=== PATIENT | male | born 1955 | race African-American/Black ===

== ENCOUNTER 2016-06-27 11:17 | Emergency (ER) | payer MEDICARE ==
[~2016-06-27 11:17] MED LIST: ASPI325T4 PO; CARV6.252 PO; CLOP75TA PO; DOCU-27 PO; FURO-68 PO; FURO80TA3 PO; Hydrocodone/Acetaminophen PO; LISI-338 PO; NITR0.4T SL; POTA20TA4 PO; SIMV40TA3 PO; SPIR25TA PO
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
[2016-06-27 13:09] LABS: BASO # 0.1 x10^3/uL (0.0-0.2); BASO % 1 % (0-3); EOS % 1 % (0-3); HEMATOCRIT 41.6 % (39.0-53.0); HEMOGLOBIN 13.1 g/dL (13.0-17.5); LYMPH # 0.9 x10^3/uL (1.0-4.8); LYMPH % 10 % (24-48); MEAN CORPUSCULAR HEMOGLOBIN 27 pg (25-35); MEAN CORPUSCULAR HGB CONC 32 g/dL (31-37); MEAN CORPUSCULAR VOLUME 87 fL (79-100); MONO % 12 % (0-9); NEUT % 77 % (31-73); PLATELET COUNT 187 x10^3/uL (140-400); WHITE BLOOD COUNT 9.9 x10^3/uL (4.0-11.0)
--- NOTE | 2016-06-27 13:12 | EKG ---
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
[2016-06-27 13:21] LABS: CREATININE 1.2 mg/dL (0.7-1.3); GFR 74.5; POTASSIUM 4.6 mmol/L (3.5-5.1)
[2016-06-27 13:57] LABS: INR 1.3 (0.8-1.1)
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
[2016-06-27] MEDS ORDERED: FUROSEMIDE 40 MG/4 ML VIAL IVP STA (14:48)
[2016-06-27 15:01] VITALS: BP 119/76
[2016-06-30] MEDS ORDERED: METO2.5T PO (11:37)
[2016-06-30] MEDS ORDERED: COLC0.6T34 PO (11:37)
== END 2016-06-27 15:14 | disposition home or self-care (01) ==
LOC: ER 11:17
DX: I50.9 Heart failure, unspecified (principal); Z91.013 Allergy to seafood
CPT/HCPCS: 36415; 71010; 80048; 83880; 84484; 85027; 85610; 85730; 93005; 96374; J1940; 99285-25

== ENCOUNTER 2016-06-28 11:22 | Inpatient (IN) | payer MEDICARE ==
[~2016-06-28] VITALS: Ht 182.9 cm; Wt 138.9 kg
--- NOTE | 2016-06-28 12:48 | PHYS DOC ---
Past Medical History Past Medical History: A-Fib, CAD, CHF, High Cholesterol, Hypertension Additional Past Medical Histor: cellulitis Past Surgical History: Other Additional Past Surgical Histo: CABG, AICD Alcohol Use: Occasionally Drug Use: None Adult General Chief Complaint Chief Complaint: LOWER EXTREMITY SWELLING HPI HPI Patient is a 60 year old white male who presents with bilateral lower extremity edema, shortness of breath. Patient reports for the past 2 weeks he has been feeling short of breath and having increasing swelling in bilateral lower extremities. He also feels like there is fluid in his chest. He has mild throbbing discomfort in his chest and cough as well. No clear inciting or mitigating factors. He was seen here at [facility] yesterday for same and was given dose of lasix before being sent home. Review of Systems Review of Systems Constitutional: Denies fever or chills Eyes: Denies change in visual acuity or eye pain HENT: Denies nasal congestion or sore throat Respiratory: Cough, shortness of breath, "fluid in chest" Cardiovascular: Denies chest pain GI: Denies abdominal pain, nausea, vomiting, bloody stools or diarrhea : Denies dysuria or hematuria Musculoskeletal: BLE swelling, pain Integument: Denies rash or skin lesions Neurologic: Denies headache, focal weakness or sensory changes Current Medications Current Medications Current Medications Medications (Trade) Dose Ordered Sig/Tanya Start Time Stop Time Status Last Admin Dose Admin Oxycodone/ Acetaminophen (Percocet 5/325) 2 tab 1X ONCE 06/28/16 13:00 06/28/16 13:01 DC 06/28/16 13:33 2 TAB Allergies Allergies Allergies Coded Allergies Type Severity Reaction Last Updated Verified shellfish derived Allergy Intermediate Hives 07/15/14 No Physical Exam Physical Exam Constitutional: Well developed, well nourished, no acute distress, non-toxic appearance HENT: Normocephalic, atraumatic, bilateral external ears normal Eyes: EOMI, conjunctiva normal, no discharge Neck: Normal range of motion, no stridor Cardiovascular: Heart rate normal, regular rhythm, murmur noted Lungs & Thorax: Bilateral breath sounds clear to auscultation Abdomen: Bowel sounds normal, soft, non-distended, no TTP Skin: Warm, dry, no erythema, no rash Extremities: BLE edema, TTP; 1+ b/l DP pulse Neurologic: Alert and oriented X 3, no gross deficits noted Current Patient Data Vital Signs Vital Signs Date Time Temp Pulse Resp B/P Pulse Ox O2 Delivery O2 Flow Rate FiO2 06/28/16 13:33 24 94 Room Air 06/28/16 13:00 78 134/82 06/28/16 12:00 98.2 98.2 Lab Values Laboratory Tests Test 06/28/16 13:03 White Blood Count 9.4x10^3/uL (4.0-11.0) Red Blood Count 4.61x10^6/uL (4.30-5.70) Hemoglobin 12.6g/dL (13.0-17.5) L Hematocrit 39.6% (39.0-53.0) Mean Corpuscular Volume 86fL (79-100) Mean Corpuscular Hemoglobin 27pg (25-35) Mean Corpuscular Hemoglobin Concent 32g/dL (31-37) Red Cell Distribution Width 14.3% (11.5-14.5) Platelet Count 197x10^3/uL (140-400) Neutrophils (%) (Auto) 78% (31-73) H Lymphocytes (%) (Auto) 9% (24-48) L Monocytes (%) (Auto) 12% (0-9) H Eosinophils (%) (Auto) 1% (0-3) Basophils (%) (Auto) 1% (0-3) Neutrophils # (Auto) 7.3x10^3uL (1.8-7.7) Lymphocytes # (Auto) 0.8x10^3/uL (1.0-4.8) L Monocytes # (Auto) 1.1x10^3/uL (0.0-1.1) Eosinophils # (Auto) 0.1x10^3/uL (0.0-0.7) Basophils # (Auto) 0.1x10^3/uL (0.0-0.2) Sodium Level 137mmol/L (136-145) Potassium Level 4.4mmol/L (3.5-5.1) Chloride Level 98mmol/L (98-107) Carbon Dioxide Level 32mmol/L (21-32) Anion Gap 7 (6-14) Blood Urea Nitrogen 13mg/dL (8-26) Creatinine 1.2mg/dL (0.7-1.3) Estimated GFR (Cockcroft-Gault) 74.5 Glucose Level 132mg/dL (70-99) H Calcium Level 9.1mg/dL (8.5-10.1) Troponin I Quantitative < 0.017ng/mL (0.000-0.055) XN-Csu-U-Type Natriuretic Peptide 2077pg/mL (0-124) H Laboratory Tests 06/28/16 13:03 Laboratory Tests 06/28/16 13:03 EKG EKG EKG (my read): sinus rhythm, rate 69, LAD, ID 220 ms, IVCD, TWI lead I/aVL Radiology/Procedures Radiology/Procedures CXR: IMPRESSION: 1. Stable cardiomegaly. 2. Stable postoperative changes. Course & Med Decision Making Course & Med Decision Making Pertinent Labs and Imaging studies reviewed. (See chart for details) Patient is 60-year-old male who presents with bilateral lower extremity edema and shortness of breath. Suspect CHF exacerbation. EKG, chest x-ray, labs ordered to evaluate. Oral pain medication ordered for relief of pain. Labs notable for elevated BNP; this is actually slightly higher than yesterday, when he is seen in the ED and was even given dose of IV Lasix. Discussed results with patient. Given increasing BMP even after IV Lasix this, we will be best for patient to stay in the hospital for diuresis and evaluation by cardiology. Dose of Lasix ordered. Discussed Dr. Keller, will admit under his care for further evaluation and treatment. Dragon Disclaimer Dragon Disclaimer This electronic medical record was generated, in whole or in part, using a voice recognition dictation system. Departure Departure Impression: Primary Impression: CHF exacerbation Disposition: ADMITTED INPATIENT Admitting Physician: Danny Keller Condition: STABLE Referrals: DANNY KELLER MD (PCP) GRISELDA ERWIN MD Jun 28, 2016 12:48
[2016-06-28] MEDS ORDERED: OXYCODONE/APAP 5/325 TABLET. PO ONE (13:00)
[2016-06-28 13:14] LABS: BASO # 0.1 x10^3/uL (0.0-0.2); BASO % 1 % (0-3); EOS % 1 % (0-3); HEMATOCRIT 39.6 % (39.0-53.0); HEMOGLOBIN 12.6 g/dL (13.0-17.5); LYMPH # 0.8 x10^3/uL (1.0-4.8); LYMPH % 9 % (24-48); MEAN CORPUSCULAR HEMOGLOBIN 27 pg (25-35); MEAN CORPUSCULAR HGB CONC 32 g/dL (31-37); MEAN CORPUSCULAR VOLUME 86 fL (79-100); MONO % 12 % (0-9); NEUT % 78 % (31-73); PLATELET COUNT 197 x10^3/uL (140-400); RED BLOOD COUNT 4.61 x10^6/uL (4.30-5.70); RED CELL DISTRIBUTION WIDTH 14.3 % (11.5-14.5); WHITE BLOOD COUNT 9.4 x10^3/uL (4.0-11.0)
[2016-06-28 13:31] LABS: CALCIUM 9.1 mg/dL (8.5-10.1); CREATININE 1.2 mg/dL (0.7-1.3); GFR 74.5; POTASSIUM 4.4 mmol/L (3.5-5.1)
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
[2016-06-28] MEDS ORDERED: ACETAMINOPHEN 325 MG TABLET. PO PRN ×2 (14:15→19:45)
[2016-06-28] MEDS ORDERED: ONDANSETRON PF 4 MG/2 ML VIAL. IV PRN ×2 (14:15→19:45)
[2016-06-28] MEDS ORDERED: FUROSEMIDE 40 MG/4 ML VIAL IVP ONE (14:15)
--- NOTE | 2016-06-28 14:20 | EKG ---
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
[2016-06-28] MEDS: MORPHINE SULFATE 4 MG/ML DISP.SYRIN. IV PRN (16:26)
[2016-06-28 19:00] VITALS: BP 118/77
[2016-06-28] MEDS ORDERED: ALBUTEROL SULFATE 2.5 MG/3 ML NEBU. NEB PRN (19:45)
[2016-06-28] MEDS ORDERED: HYDROCODONE/APAP 5/325MG TABLET. PO PRN (19:45)
[2016-06-28] MEDS ORDERED: hydrALAZINE 20 MG/ML VIAL. IVP PRN (19:45)
[2016-06-28] MEDS ORDERED: FUROSEMIDE 20 MG/2 ML VIAL IVP ONE (20:00)
[2016-06-28] MEDS ORDERED: SIMVASTATIN 40 MG TABLET. PO ONE (22:30)
[2016-06-28] MEDS ORDERED: POTASSIUM CHLORIDE 20 MEQ TABLET.ER. PO ONE (22:30)
[2016-06-28 23:00] VITALS: BP 123/87
[2016-06-28] MEDS: CARVEDILOL 6.25 MG TABLET PO SCH (23:02)
[2016-06-29 02:06] LABS: BASO % 0 % (0-3); EOS % 1 % (0-3); HEMATOCRIT 39.9 % (39.0-53.0); HEMOGLOBIN 12.5 g/dL (13.0-17.5); LYMPH # 0.9 x10^3/uL (1.0-4.8); LYMPH % 10 % (24-48); MEAN CORPUSCULAR HEMOGLOBIN 27 pg (25-35); MEAN CORPUSCULAR HGB CONC 31 g/dL (31-37); MEAN CORPUSCULAR VOLUME 86 fL (79-100); MONO % 12 % (0-9); NEUT % 77 % (31-73); PLATELET COUNT 194 x10^3/uL (140-400); RED BLOOD COUNT 4.62 x10^6/uL (4.30-5.70); RED CELL DISTRIBUTION WIDTH 14.8 % (11.5-14.5); WHITE BLOOD COUNT 9.1 x10^3/uL (4.0-11.0)
[2016-06-29 02:17] LABS: CALCIUM 8.9 mg/dL (8.5-10.1); CREATININE 1.2 mg/dL (0.7-1.3); GFR 74.5; POTASSIUM 3.9 mmol/L (3.5-5.1)
[2016-06-29 03:00] VITALS: BP 132/85
[2016-06-29] MEDS: MORPHINE SULFATE 4 MG/ML DISP.SYRIN. IV PRN ×3 (03:28→08:57)
--- NOTE | 2016-06-29 05:38 | ACF ---
Admission Forms Criteria HEART FAILURE: COMMON COMPLICATIONS Clinical Indications for Inpatient Care (Place 'X' for any and all applicable criteria): Ongoing inpatient care may be indicated for heart failure with ANY ONE of the following (1)(2)(3)(4)(5): [ ]I. Ongoing need for care for primary condition requiring frequent therapy adjustments because of changes in cardiac function (eg, drug dosage changes for drugs that are renally metabolized) [ ]II. New-onset heart failure [ ]III. Heart failure with decreased urine output not responsive to attempts to optimize volume status [ ]IV. Acute cardiac ischemia causing or associated with failure [X]V. Complications of heart failure, including ANY ONE of the following: [ ]a) Pericardial effusion [ ]b) Symptomatic pleural effusion [X]c) O2 saturation <90% or PO2 < 60 mm Hg (8.0 kPa) on room air or require baseline supplemental O2 [ ]d) Tachypnea [X]e) Dyspnea [ ]f) Syncope [ ]g) Change in mental status [ ]h) Acute renal insufficiency that is severe (reduction of more than 50% in estimated glomerular filtration rate from baseline) or progressive reduction of more than 25% in estimated glomerular filtration rate from baseline, with creatinine continuing to rise) [ ]i) Hemodynamic instability [ ]j) Anasarca [ ]k) Clinically significant metabolic abnormalities due to heart failure (eg, new-onset metabolic acidosis) Extended stay beyond goal length of stay for primary condition may be needed until ALL of the following are present(1)(3): [ ]a) Stable and effective diuretic regimen established (or patient on stable dialysis regimen if in chronic renal failure) [ ]b) Breathing comfortably at rest [ ]c) Saturation of arterial oxygen greater than 90% or at acceptable baseline [ ]d) Pulmonary edema absent or improved [ ]e) Hemodynamic stability [ ]f) Volume status acceptable on oral medication [ ]g) Peripheral or sacral edema absent or improved [ ]h) Renal function stable and manageable at a lower level of care [ ]i) Complications (eg, pleural effusion) resolved or manageable at a lower level of care [ ]j) Patient or caregiver has received written discharge instructions or educational material addressing activity level, diet, discharge medications, follow-up appointment, weight monitoring, and what to do if symptoms worsen The original [email or web address] content created by [employer] has been revised. The portions of the content which have been revised are identified through the use of italic text or in bold, and [facility] has neither reviewed nor approved the modified material.All other unmodified content is copyright [facility]. Please see references footnoted in the original [facility] edition 2016 Admission Criteria Met?: Yes SANDIE ZAVALETA Jun 29, 2016 05:38
[2016-06-29 07:20] VITALS: BP 145/73
[2016-06-29] MEDS: ALBUTEROL SULFATE 2.5 MG/3 ML NEBU. NEB SCH ×4 (08:16→19:50)
[2016-06-29] MEDS: CLOPIDOGREL BISULFATE 75 MG TABLET PO SCH (08:18)
[2016-06-29] MEDS: SPIRONOLACTONE 25 MG TABLET PO SCH (08:18)
[2016-06-29] MEDS: POTASSIUM CHLORIDE 20 MEQ TABLET.ER. PO SCH ×2 (08:18→17:34)
[2016-06-29] MEDS: FUROSEMIDE 80 MG TABLET PO SCH ×2 (08:18→15:33)
[2016-06-29] MEDS: LISINOPRIL 5 MG TABLET. PO SCH (08:21)
[2016-06-29] MEDS: ASPIRIN 325 MG TABLET PO SCH (08:21)
[2016-06-29] MEDS: CARVEDILOL 6.25 MG TABLET PO SCH ×2 (08:21→17:35)
[2016-06-29] MEDS ORDERED: FUROSEMIDE 40 MG/4 ML VIAL IVP ONE ×2 (10:30→12:30)
--- NOTE | 2016-06-29 10:34 | PDOC2 ---
CARDIAC CONSULT DATE OF CONSULT Date of Consult DATE: 06/29/16 TIME: 10:21 REASON FOR CONSULT Reason for Consult: CHF Exacerbation REFERRING PHYSICIAN Referring Physician: Dr. Dong SOURCE Source: Chart review, Patient HISTORY OF PRESENT ILLNESS HISTORY OF PRESENT ILLNESS This is a 60 yo male who presented with complaints of shortness of breath and lower extremity edema. Associated with LE tightness and tenderness. Patient reports both have been ongoing for the last 2 weeks; have progressively worsened. Denies any CP, palpitations, diaphoresis, dizziness, orthopnea, DRAPER, or recent illness/fevers. Reports consistent diet and compliance with medications. Patient was seen here at [facility] yesterday for same symptoms and was given dose of Lasix before being sent home. PAST MEDICAL HISTORY Cardiovascular: CAD, CHF, HTN, VA, Hyperlipidemia, Other (ischemic cardiomyopathy s/p ICD implantation) Pulmonary: Other (ELIZABETH ) GI: No pertinent hx Heme/Onc: No pertinent hx, Sickle cell disease Hepatobiliary: No pertinent hx Psych: No pertinent hx Musculoskeletal: low back pain, Osteoarthritis, Other (lumbar stenosis ) Rheumatologic: No pertinent hx, Gout Infectious disease: No pertinent hx ENT: No pertinent hx Renal/: No pertinent hx Endocrine: Diabetes Dermatology: No pertinent hx PAST SURGICAL HISTORY Past Surgical History: Pacemaker (AICD), CABG, Other (left arm and right shoulder sx wtih hardware) FAMILY HISTORY Family History: Heart Disease, Hypertension SOCIAL HISTORY Smoke: No ALCOHOL: occassional Drugs: None Lives: with Family CURRENT MEDICATIONS CURRENT MEDICATIONS Current Medications Medications (Trade) Dose Ordered Sig/Tanya Route PRN Reason Start Time Stop Time Status Last Admin Dose Admin Oxycodone/ Acetaminophen (Percocet 5/325) 2 tab 1X ONCE PO 06/28/16 13:00 06/28/16 13:01 DC 06/28/16 13:33 Furosemide (Lasix) 40 mg 1X ONCE IVP 06/28/16 14:15 06/28/16 14:16 DC 06/28/16 15:29 Morphine Sulfate 4 mg PRN Q2HR PRN IV PAIN 06/28/16 14:15 06/29/16 14:14 06/29/16 08:57 Carvedilol (Coreg) 6.25 mg BIDWMEALS PO 06/28/16 22:00 06/29/16 08:21 Potassium Chloride (Klor-Con) 20 meq BIDWMEALS PO 06/29/16 08:00 06/29/16 08:18 Spironolactone (Aldactone) 25 mg DAILY PO 06/29/16 09:00 06/29/16 08:18 Albuterol Sulfate (Ventolin Neb Soln) 2.5 mg RTQID NEB 06/29/16 21:30 06/29/16 21:30 DC 06/28/16 21:38 Potassium Chloride (Klor-Con) 20 meq 1X ONCE PO 06/28/16 22:30 06/28/16 22:31 DC 06/28/16 23:01 Simvastatin (Zocor) 40 mg 1X ONCE PO 06/28/16 22:30 06/28/16 22:31 DC 06/28/16 23:02 Aspirin (Katie Aspirin) 325 mg DAILY PO 06/29/16 09:00 06/29/16 08:21 Clopidogrel Bisulfate (Plavix) 75 mg DAILY PO 06/29/16 09:00 06/29/16 08:18 Furosemide (Lasix) 80 mg BID94 PO 06/29/16 09:00 06/29/16 08:18 Lisinopril (Prinivil) 5 mg DAILY PO 06/29/16 09:00 06/29/16 08:21 Albuterol Sulfate (Ventolin Neb Soln) 2.5 mg RTQID [facility] 06/29/16 08:00 06/29/16 08:16 ALLERGIES ALLERGIES: Coded Allergies: shellfish derived (Unverified Allergy, Intermediate, Hives, 07/15/14) ROS Review of System 14 point ROS conducted with pertinent positives noted above in HPI. PHYSICAL EXAM General: Alert, Oriented X3, Cooperative, No acute distress HEENT: Atraumatic, Mucous membr. moist/pink Lungs: Normal air movement, Other (crackles posterior bases ) Heart: Regular rate, Normal S1, Normal S2, Other (3/6 systolic murmur ) Abdomen: Soft, Other (obese ) Extremities: Other (1-2+ bilateral LE edema. Diminished DP pulses ) Skin: No significant lesion, Other (bi LE skin taught, tender to touch) Neuro: Normal speech, Sensation intact Psych/Mental Status: Mental status NL, Mood NL MUSCULOSKELETAL: Full range of motion without pain VITALS VITALS Vital Signs Date Time Temp Pulse Resp B/P Pulse Ox O2 Delivery O2 Flow Rate FiO2 06/29/16 08:57 Room Air 06/29/16 08:21 81 145/73 06/29/16 08:17 97 06/29/16 07:20 97.5 20 97.5 LABS Lab: Laboratory Tests Test 06/28/16 13:03 06/28/16 19:55 06/29/16 02:00 White Blood Count 9.4x10^3/uL (4.0-11.0) 9.1x10^3/uL (4.0-11.0) Red Blood Count 4.61x10^6/uL (4.30-5.70) 4.62x10^6/uL (4.30-5.70) Hemoglobin 12.6g/dL (13.0-17.5) 12.5g/dL (13.0-17.5) Hematocrit 39.6% (39.0-53.0) 39.9% (39.0-53.0) Mean Corpuscular Volume 86fL (79-100) 86fL (79-100) Mean Corpuscular Hemoglobin 27pg (25-35) 27pg (25-35) Mean Corpuscular Hemoglobin Concent 32g/dL (31-37) 31g/dL (31-37) Red Cell Distribution Width 14.3% (11.5-14.5) 14.8% (11.5-14.5) Platelet Count 197x10^3/uL (140-400) 194x10^3/uL (140-400) Neutrophils (%) (Auto) 78% (31-73) 77% (31-73) Lymphocytes (%) (Auto) 9% (24-48) 10% (24-48) Monocytes (%) (Auto) 12% (0-9) 12% (0-9) Eosinophils (%) (Auto) 1% (0-3) 1% (0-3) Basophils (%) (Auto) 1% (0-3) 0% (0-3) Neutrophils # (Auto) 7.3x10^3uL (1.8-7.7) 7.0x10^3uL (1.8-7.7) Lymphocytes # (Auto) 0.8x10^3/uL (1.0-4.8) 0.9x10^3/uL (1.0-4.8) Monocytes # (Auto) 1.1x10^3/uL (0.0-1.1) 1.1x10^3/uL (0.0-1.1) Eosinophils # (Auto) 0.1x10^3/uL (0.0-0.7) 0.1x10^3/uL (0.0-0.7) Basophils # (Auto) 0.1x10^3/uL (0.0-0.2) 0.0x10^3/uL (0.0-0.2) Sodium Level 137mmol/L (136-145) 139mmol/L (136-145) Potassium Level 4.4mmol/L (3.5-5.1) 3.9mmol/L (3.5-5.1) Chloride Level 98mmol/L (98-107) 99mmol/L (98-107) Carbon Dioxide Level 32mmol/L (21-32) 29mmol/L (21-32) Anion Gap 7 (6-14) 11 (6-14) Blood Urea Nitrogen 13mg/dL (8-26) 19mg/dL (8-26) Creatinine 1.2mg/dL (0.7-1.3) 1.2mg/dL (0.7-1.3) Estimated GFR (Cockcroft-Gault) 74.5 74.5 Glucose Level 132mg/dL (70-99) 121mg/dL (70-99) Calcium Level 9.1mg/dL (8.5-10.1) 8.9mg/dL (8.5-10.1) Troponin I Quantitative < 0.017ng/mL (0.000-0.055) < 0.017ng/mL (0.000-0.055) < 0.017ng/mL (0.000-0.055) WB-Pla-D-Type Natriuretic Peptide 2077pg/mL (0-124) ECHOCARDIOGRAM ECHOCARDIOGRAM <Conclusion> Left ventricle systolic function is severely impaired. The Ejection Fraction is <20%. There is global hypokinesis of the left ventricle. There is akinesis in the mid to distal septal wall. There is akinesis in the basal to mid anterior wall. Transmitral Doppler flow pattern is restrictive diastolic dysfunction. The right ventricle is mildly dilated. RV Systolic function is mildly reduced. Doppler and Color Flow revealed moderate tricuspid regurgitation. There is severe pulmonary hypertension. The PA pressure was estimated at 86 mmHg. Doppler and Color Flow revealed moderate to severe pulmonic valvular regurgitation. The IVC is dilated and collapses <50% with inspiration. DATE: 05/18/16 1226 STRESS TEST STRESS TEST Conclusion 1. No EKG evidence of stress-induced ischemia. 2. Infarct in the mid anterior, septal and apical rodriguez with kathy-infarction ischemia present. 3. No isolated areas of reversible ischemia. 4. Decreased ejection fraction at 42% with septal, distal anterior and apical hypokinesis. 5. Moderate risk Lexiscan nuclear stress test. DATE: 05/18/16 1545 HEART CATH HEART CATH Coronaries. Left main. The left main had a 10% lesion. Left anterior descending. The proximal LAD stent was patent. Left circumflex. There was a 50% proximal lesion, a greater than 60% obtuse marginal 1 lesion and the distal left circumflex was a small diffusely diseased vessel. Right coronary artery. There was a proximal subtotal lesion and a mid occlusion. Grafts. Saphenous vein graft to the left circumflex system was patent. Saphenous vein graft to the PDA and right coronary artery was patent. <Conclusion> Multivessel CAD. Patent LAD stent. Two patent saphenous vein grafts. Elevated LVEDP at 32 mmHg. DATE: 05/25/16 1413 ASSESSMENT/PLAN ASSESSMENT/PLAN 1. Acute on chronic systolic HF improved with IV Lasix recent echo revealed impaired LV function with an EF <20% with polyvalvular disease and severe pul HTN- PAP 86 Continue with diuresis with monitoring of renal function. Zaroxolyn added. 2000cc F.R. continue optimization therapy. 2. Ischemic cardiomoypathy; LVEF 20% s/p ICD implantation recent device interrogation with normal function. continue medical management 3. CAD s/p CABG and PCI/stent to LAD stable. CP free. recent cardiac cath revealed patent SVG to LCx graft and SVG to PDA and RCA, along with patent LAD stent. continue secondary prevention 4. Hypertension controlled. continue with current therapy 5. Hyperlipidemia check lipids statin therapy 6. ELIZABETH? outpatient evaluation planned for next week Problems: ADRIANA ALFARO APRN Jun 29, 2016 10:34
[2016-06-29] MEDS ORDERED: HYDROCODONE/APAP 7.5/325MG TABLET. PO PRN (10:45)
[2016-06-29 11:39] VITALS: BP 110/74
--- NOTE | 2016-06-29 13:20 | HP ---
ADMIT DATE: 06/28/2016 CHIEF COMPLAINT: Shortness of breath and leg pain. HISTORY OF PRESENT ILLNESS AND HOSPITAL COURSE: This patient is a 60-year-old male with known nonischemic cardiomyopathy and severe pulmonary hypertension, who began having increasing leg swelling and subsequently leg pain mostly to his right lower extremity as well as shortness of breath. He has shortness of breath which comes in as episodes of attack. His pain in his leg was constant. He came to the Emergency Room on 06/27/2016 and was treated with IV Lasix and discharged home, but returned with increasing swelling and poor efficacy of IV Lasix. At this point, he was admitted because he was unable to care for himself due to leg pain, poor mobility and increasing shortness of breath. PAST MEDICAL HISTORY: Significant for: 1. Coronary artery disease. 2. Hypertension. 3. High cholesterol. 4. Prediabetes. 5. Ischemic cardiomyopathy with ICD in place. Ejection fraction less than 20% on last echo. 6. Pulmonary hypertension. 7. Gouty arthritis. FAMILY HISTORY: Noncontributory. SOCIAL HISTORY: The patient does not smoke or use alcohol. REVIEW OF SYSTEMS: The patient was doing well until approximately 48 hours prior to admit when he began having increasing leg swelling and shortness of breath. He denies any nausea, vomiting, cough, congestion, or fever. He has no diarrhea. PHYSICAL EXAMINATION: GENERAL: This is a well-nourished, moderately obese male, in mild distress. He is alert and oriented x 3. HEENT: Benign. NECK: Supple, no JVD or bruits. CARDIAC: Regular rate and rhythm with grade 2/3 systolic ejection murmur. LUNGS: Clear with decreased of sounds at bases. ABDOMEN: Soft and nontender. EXTREMITIES: Showed thready pulses bilaterally and 1+ pitting edema. NEUROLOGIC: Showed no unilateral findings. ASSESSMENT: 1. Evzub-er-luxscyc combined systolic and diastolic congestive heart failure. 2. Severe pulmonary hypertension. PLAN: To proceed with diuresis and consult Cardiology for further evaluation and care. We will also do circulation studies for extremities due to poor pulses and leg pain as well as evaluation for gouty arthritis. ADA SAENZ MD DR: SHILPA/rakesh JOB#: [id number] / [id number]
--- NOTE | 2016-06-29 13:30 | RAD ---
EXAM: Bilateral lower extremity venous Doppler sonogram. HISTORY: Swelling. TECHNIQUE: Grayscale and color Doppler sonographic imaging of the lower 70 veins with spectral waveform analysis was performed. COMPARISON: None. FINDINGS: There is normal color flow, normal compressibility and there are normal spectral waveforms within the lower extremity veins. IMPRESSION: No Doppler evidence of lower extremity venous thrombosis.
[2016-06-29] MEDS: HYDROCODONE/APAP 7.5/325MG TABLET. PO PRN (15:33)
[2016-06-29 15:36] VITALS: BP 130/62
[2016-06-29 19:00] VITALS: BP 101/73
[2016-06-29] MEDS ORDERED: SIMVASTATIN 40 MG TABLET. PO SCH (21:00)
[2016-06-29] MEDS ORDERED: ALBUTEROL SULFATE 2.5 MG/3 ML NEBU. NEB SCH (21:30)
[2016-06-29 23:00] VITALS: BP 132/76
[2016-06-30 03:00] VITALS: BP 134/78
[2016-06-30 07:00] VITALS: BP 131/72
[2016-06-30] MEDS: ALBUTEROL SULFATE 2.5 MG/3 ML NEBU. NEB SCH ×3 (07:10→14:57)
[2016-06-30] MEDS: CARVEDILOL 6.25 MG TABLET PO SCH ×2 (08:12→15:46)
[2016-06-30] MEDS: HYDROCODONE/APAP 7.5/325MG TABLET. PO PRN ×2 (08:12→15:47)
[2016-06-30] MEDS: POTASSIUM CHLORIDE 20 MEQ TABLET.ER. PO SCH ×2 (08:13→15:46)
[2016-06-30] MEDS: ASPIRIN 325 MG TABLET PO SCH (08:46)
[2016-06-30] MEDS: FUROSEMIDE 80 MG TABLET PO SCH ×2 (08:46→15:45)
[2016-06-30] MEDS: CLOPIDOGREL BISULFATE 75 MG TABLET PO SCH (08:46)
[2016-06-30] MEDS: LISINOPRIL 5 MG TABLET. PO SCH (08:46)
[2016-06-30] MEDS: SPIRONOLACTONE 25 MG TABLET PO SCH (08:46)
[2016-06-30] MEDS ORDERED: METOLAZONE 2.5 MG TABLET PO SCH (09:00)
[2016-06-30 11:17] VITALS: BP 104/67
[2016-06-30] MEDS ORDERED: COLC0.6T34 PO (11:37)
[2016-06-30] MEDS ORDERED: METO2.5T PO (11:37)
[2016-06-30] MEDS ORDERED: COLCHICINE 0.6 MG TABLET PO SCH (11:47)
[2016-06-30 11:51] LABS: HEMATOCRIT 37.5 % (39.0-53.0); HEMOGLOBIN 11.9 g/dL (13.0-17.5); RED BLOOD COUNT 4.36 x10^6/uL (4.30-5.70); RED CELL DISTRIBUTION WIDTH 14.8 % (11.5-14.5); WHITE BLOOD COUNT 9.2 x10^3/uL (4.0-11.0)
[2016-06-30 12:06] LABS: CALCIUM 8.7 mg/dL (8.5-10.1); CREATININE 1.2 mg/dL (0.7-1.3); GFR 74.5; POTASSIUM 3.9 mmol/L (3.5-5.1)
--- NOTE | 2016-06-30 13:12 | PDOC ---
CARDIO Progress Notes Date and Time Date of Service 06/30/16 Time of Evaluation 1150 Subjective Subjective: No Chest Pain, No shortness of breath, No Palpitations, No Dizziness, Other (SOA improved. ) Vitals Vitals Vital Signs Date Time Temp Pulse Resp B/P Pulse Ox O2 Delivery O2 Flow Rate FiO2 06/30/16 11:17 97.9 63 18 104/67 90 Room Air 97.9 Weight Weight [ ] Input and Output Intake and Output Intake and Output 06/30/16 07:00 Intake Total 480 ml Output Total 2025 ml Balance -1545 ml Intake Oral 480 ml Output Urine Total 2025 ml Laboratory Labs Laboratory Tests Test 06/30/16 11:20 White Blood Count 9.2x10^3/uL (4.0-11.0) Red Blood Count 4.36x10^6/uL (4.30-5.70) Hemoglobin 11.9g/dL (13.0-17.5) Hematocrit 37.5% (39.0-53.0) Mean Corpuscular Volume 86fL (79-100) Mean Corpuscular Hemoglobin 27pg (25-35) Mean Corpuscular Hemoglobin Concent 32g/dL (31-37) Red Cell Distribution Width 14.8% (11.5-14.5) Platelet Count 214x10^3/uL (140-400) Sodium Level 135mmol/L (136-145) Potassium Level 3.9mmol/L (3.5-5.1) Chloride Level 97mmol/L (98-107) Carbon Dioxide Level 32mmol/L (21-32) Anion Gap 6 (6-14) Blood Urea Nitrogen 19mg/dL (8-26) Creatinine 1.2mg/dL (0.7-1.3) Estimated GFR (Cockcroft-Gault) 74.5 Glucose Level 121mg/dL (70-99) Calcium Level 8.7mg/dL (8.5-10.1) Physical Exam HEENT: Neck Supple W Full Motion Chest: Symmetric LUNGS: Other (diminished bases ) Heart: S1S2, RRR, murmurs ( systolic murmur /) Abdomen: Normal Aortic Impulse (3/6 systolic murmur ), Soft N/T Extremities: Other (1+ bilateral LE edema ) Neurology: alert, oriented, follow commands Assessment Assessment 1. Acute on chronic systolic HF improved with IV Lasix recent echo revealed impaired LV function with an EF <20% with polyvalvular disease and severe pul HTN- PAP 86 2000cc F.R. Appears fairly well compensated continue optimization therapy. May discharge from a cardiovascular standpoint and f/u in our office with Dr. Myles in 1 month. 2. Ischemic cardiomyopathy; LVEF 20% s/p ICD implantation recent device interrogation with normal function. continue medical management 3. CAD s/p CABG and PCI/stent to LAD stable. CP free. recent cardiac cath revealed patent SVG to LCx graft and SVG to PDA and RCA, along with patent LAD stent. No further CAD continue secondary prevention 4. Hypertension controlled. continue with current therapy 5. Hyperlipidemia statin therapy 6. ELIZABETH? outpatient evaluation planned for next week ADRIANA ALFARO APRN Jun 30, 2016 13:12
--- NOTE | 2016-06-30 13:29 | RAD ---
EXAM: Bilateral lower extremity arterial Doppler sonogram. HISTORY: Decreased pulses. TECHNIQUE: Grayscale and color Doppler sonographic imaging of the lower extremity arteries with spectral waveform analysis was performed. COMPARISON: None. FINDINGS: There are triphasic waveforms extending from the right common femoral artery to the right peroneal artery and from the left common femoral artery to the dorsalis pedis artery. There are biphasic waveforms within the right anterior tibial and dorsalis pedis arteries. The peak systolic velocities within the right lower extremity measure 80 cm/s within the common femoral artery, 53 cm/s within the deep femoral artery, 91 cm/s within the proximal superficial femoral artery, 81 cm/s within the mid superficial femoral artery, 117 cm/s within the distal superficial femoral artery, 86 cm/s within the popliteal artery, 94 cm/s within the proximal posterior tibial artery, 84 cm/s within the peroneal artery, 58 cm/s within the anterior tibial artery and 4 cm/s within the dorsalis pedis artery. The peak systolic velocities within the left lower extremity measure 109 cm/s within the common femoral artery, 46 cm/s within the deep femoral artery, 95 cm/s within the proximal superficial femoral artery, 75 cm/s within the mid superficial femoral artery, was 101 cm/s within the distal superficial femoral artery, 69 cm/s within the popliteal artery, 64 cm/s within the proximal posterior tibial artery, 94 cm/s within the peroneal artery, 40 cm/s within the anterior tibial artery and 63 cm/s within the dorsalis pedis artery. IMPRESSION: 1. Decreased peak systolic velocity within the right dorsalis pedis artery suggesting low flow due to proximal hemodynamically significant stenosis. There are biphasic waveforms within the right anterior tibial and dorsalis pedis arteries and triphasic waveforms throughout the remainder of the lower extremity arteries. 2. Peak systolic velocities within the bilateral lower extremity arteries as described in detail above. There is no evidence of occlusion.
[2016-06-30 15:38] VITALS: BP 104/62
[2016-06-30 15:46] VITALS: BP 104/62
--- NOTE | 2016-06-30 20:39 | DS ---
DATE OF DISCHARGE: 06/30/2016 ADMITTING DIAGNOSIS: Acute on chronic combined systolic and diastolic congestive heart failure. HOSPITAL COURSE: The patient is a 60-year-old -[place] male with known ischemic cardiomyopathy, admitted with increasing shortness of breath after at least two ER visits for shortness of breath. He also has significant leg pain with swelling which during hospitalization localized towards his toes. Uric acid during hospital stay confirmed a high uric acid and likely gouty arthritis diagnosis. Patient was diuresed, diuresing almost 2 liters in the hospital and came back down to baseline. The patient did have poor pulses and arterial Doppler was ordered and this was pending at the time of dictation. The patient also had venous Dopplers for DVT due to shortness of breath to rule out or decrease considerations for PE. DISCHARGE DIAGNOSES: 1. Acute on chronic combined systolic and diastolic congestive heart failure. 2. Severe pulmonary hypertension. 3. Coronary artery disease. 4. Hypertension. 5. High cholesterol. 6. Prediabetes. 7. Gouty arthritis. 8. Morbid obesity. DISCHARGE MEDICATIONS: Discharged to home on the following medications: Colchicine 0.6 b.i.d., metolazone 2.5, Mondays, Wednesdays and Fridays, aspirin 325 mg daily, carvedilol 6.25 mg b.i.d., Plavix 75 mg daily, Lasix 80 mg b.i.d., lisinopril 5 mg daily, potassium 20 mEq b.i.d., simvastatin 40 mg daily, Aldactone 25 mg daily. We will consider allopurinol or Uloric as outpatient once gouty arthritis attack has resolved. We will also consider obstructive sleep apnea test due to morbid obesity. ADA SAENZ MD DR: SHILPA/rakesh JOB#: [id number] / [id number]
== END 2016-06-30 17:07 | disposition home or self-care (01) | DRG 291 ==
LOC: ER 11:22 → 5 NORTH 14:04
PROVIDERS: ADMIT Family Medicine; ATTEND Family Medicine
DX: I13.0 Hypertensive heart and chronic kidney disease with heart failure and stage 1 through stage 4 chronic kidney disease, or unspecified chronic kidney disease (principal); I50.43 Acute on chronic combined systolic (congestive) and diastolic (congestive) heart failure; Z68.41 Body mass index [BMI] 40.0-44.9, adult; I25.5 Ischemic cardiomyopathy; I27.2 Other secondary pulmonary hypertension; E11.9 Type 2 diabetes mellitus without complications; E66.01 Morbid (severe) obesity due to excess calories; E78.00 Pure hypercholesterolemia, unspecified; E78.5 Hyperlipidemia, unspecified; G47.33 Obstructive sleep apnea (adult) (pediatric); I25.10 Atherosclerotic heart disease of native coronary artery without angina pectoris; I48.91 Unspecified atrial fibrillation; M10.00 Idiopathic gout, unspecified site; Z82.49 Family history of ischemic heart disease and other diseases of the circulatory system; Z95.5 Presence of coronary angioplasty implant and graft; Z95.810 Presence of automatic (implantable) cardiac defibrillator; Z95.1 Presence of aortocoronary bypass graft; Z91.013 Allergy to seafood; N18.3 Chronic kidney disease, stage 3 (moderate)
CPT/HCPCS: 36415; 71010; 71020; 80048; 83880; 84484; 84550; 85027; 85610; 85730; 93005; 93923; 93970; 94640; 94760; 96374; J1940; J2270; 99285-25

== ENCOUNTER → 2016-07-05 | Outpatient (CLI) | payer MEDICARE ==
[2016-06-30 11:17] VITALS: BP_SYST 104
[2016-06-30 15:46] VITALS: BP_DIAS 62
[~2016-07-05] MED LIST changes: +COLC0.6T34 PO; +METO2.5T PO
== END | disposition home or self-care (01) ==
LOC: SLPLAB 18:25
PROVIDERS: ATTEND Internal Medicine Pulmonary Disease
DX: G47.33 Obstructive sleep apnea (adult) (pediatric) (principal)
CPT/HCPCS: 95810

== ENCOUNTER 2016-08-16 07:07 | Outpatient (CLI) | payer MEDICARE ==
[~2016-08-16] VITALS: Ht 182.9 cm; Wt 136.1 kg
[2016-08-16 07:48] LABS: BASO % 1 % (0-3); EOS % 2 % (0-3); HEMATOCRIT 41.9 % (39.0-53.0); HEMOGLOBIN 13.2 g/dL (13.0-17.5); LYMPH % 14 % (24-48); MEAN CORPUSCULAR HEMOGLOBIN 27 pg (25-35); MEAN CORPUSCULAR HGB CONC 32 g/dL (31-37); MEAN CORPUSCULAR VOLUME 85 fL (79-100); MONO % 12 % (0-9); NEUT % 73 % (31-73); PLATELET COUNT 190 x10^3/uL (140-400); RED BLOOD COUNT 4.93 x10^6/uL (4.30-5.70); RED CELL DISTRIBUTION WIDTH 15.5 % (11.5-14.5); WHITE BLOOD COUNT 7.5 x10^3/uL (4.0-11.0)
[2016-08-16 07:51] LABS: CREATININE 1.1 mg/dL (0.7-1.3); GFR 82.1; POTASSIUM 3.9 mmol/L (3.5-5.1)
[2016-08-16 08:04] LABS: INR 1.2 (0.8-1.1); PROTHROMBIN TIME PATIENT 14.8 SEC (11.7-14.0)
[2016-08-16 08:14] VITALS: BP 124/80
[2016-08-16] MEDS ORDERED: IODIXANOL 320 MG/ML 100 ML VIAL. ONE (08:16)
[2016-08-16] MEDS ORDERED: IOHEXOL 300 MG/ML 100ML VIAL. ONE (08:16)
[2016-08-16] MEDS ORDERED: LIDOCAINE 1% / SOD BICARB 8.4% 20 ML VIAL. IJ ONE ×2 (08:16→08:45)
[2016-08-16] MEDS ORDERED: IPRATRPIUM/ALBUTEROL 0.5/2.5MG 3 ML NEBU. NEB ONE (08:30)
[2016-08-16] MEDS ORDERED: FENTANYL PF 250 MCG/5 ML VIAL. IV ONE (08:45)
[2016-08-16] MEDS ORDERED: IODIXANOL 320 MG/ML 100 ML VIAL. IART ONE (08:45)
[2016-08-16] MEDS ORDERED: MIDAZOLAM HCL/PF 5 MG/5 ML VIAL IV ONE (08:45)
[2016-08-16 10:22] VITALS: BP 139/86
--- NOTE | 2016-08-16 10:25 | PDOC1 ---
History and Physical Date of Procedure Date of Admission History of Present Illness Reason for Visit 1 month of bilateral LE calf pain at rest and with ambulation. No prior PAD. Hx of prior CAD. No tobacco, CVA or HTN. Borderline DM. Past Medical History Past Medical History see nursing pre-op assessment Current Medications Current Medications Current Medications Iohexol (Omnipaque 300 Mg/ml) 100 ml STK-MED ONCE .ROUTE ; Start 08/16/16 at 08: 16; Stop 08/16/16 at 08:17; Status DC Lidocaine/Sodium Bicarbonate 20 ml 20 ml STK-MED ONCE IJ ; Start 08/16/16 at 08: 16; Stop 08/16/16 at 08:17; Status DC Heparin Sodium/ Sodium Chloride 1,000 ml @ As Directed STK-MED ONCE .ROUTE ; Start 08/16/16 at 08:16; Stop 08/16/16 at 08:17; Status DC Iodixanol 100 ml 100 ml STK-MED ONCE .ROUTE ; Start 08/16/16 at 08:16; Stop at 08:17; Status DC Heparin Sodium/ Sodium Chloride 500 ml @ As Directed STK-MED ONCE .ROUTE ; Start 08/16/16 at 08:17; Stop 08/16/16 at 08:18; Status DC Albuterol/ Ipratropium (Duoneb) 3 ml 1X ONCE NEB Last administered on 08:37; Start 08/16/16 at 08:30; Stop 08/16/16 at 08:31; Status DC Heparin Sodium/ Sodium Chloride 1,000 unit 1X ONCE IART Last administered on 10:19; Start 08/16/16 at 08:45; Stop 08/16/16 at 08:46; Status DC Lidocaine/Sodium Bicarbonate (Buffered Lidocaine 1%) 20 ml 1X ONCE IJ Last administered on 08/16/16 09:15; Start 08/16/16 at 08:45; Stop 08/16/16 at 08:46 ; Status DC Midazolam HCl (Versed) 5 mg 1X ONCE IV Last administered on 08/16/16 10:20; Start 08/16/16 at 08:45; Stop 08/16/16 at 08:46; Status DC Fentanyl Citrate (Fentanyl 5ml Vial) 250 mcg 1X ONCE IV Last administered on 10:21; Start 08/16/16 at 08:45; Stop 08/16/16 at 08:46; Status DC Iodixanol (Visipaque 320) 100 ml 1X ONCE IART Last administered on 08/16/16 09:15; Start 08/16/16 at 08:45; Stop 08/16/16 at 08:46; Status DC Heparin Sodium/ Sodium Chloride 1,000 unit 1X ONCE IV Last administered on 10:20; Start 08/16/16 at 10:15; Stop 08/16/16 at 10:16; Status DC Heparin Sodium/ Sodium Chloride 1,000 unit 1X ONCE IV Last administered on 10:20; Start 08/16/16 at 10:15; Stop 08/16/16 at 10:16; Status DC Active Scripts Active Colcrys (Colchicine) 0.6 Mg Tablet 0.6 Mg PO BIDBFRMEAL PRN PRN Reported Furosemide 80 Mg Tablet 1 Tab PO BID Lisinopril 5 Mg Tablet 5 Mg PO DAILY Clopidogrel (Clopidogrel Bisulfate) 75 Mg Tablet 75 Mg PO DAILY Klor-Con M20 (Potassium Chloride) 20 Meq Tab.er.prt 20 Meq PO BID Carvedilol 6.25 Mg Tablet 1 Tab PO BID Simvastatin 40 Mg Tablet 40 Mg PO HS Aldactone (Spironolactone) 25 Mg Tablet 25 Mg PO DAILY Aspirin 325 Mg Tablet 325 Mg PO DAILY Allergies Allergies: Coded Allergies: shellfish derived (Verified Allergy, Intermediate, Hives, 06/30/16) Physical Exam Vital Signs Vital Signs Date Time Temp Pulse Resp B/P Pulse Ox O2 Delivery O2 Flow Rate FiO2 08/16/16 10:21 21 99 NonRebreather Mask 10.0 08/16/16 08:14 98.0 68 124/80 98.0 Other see nursing pre-op assessment Assessment Assessment CAD and bilateral rest pain, possible PAD Problems: Plan Plan Aortogram and bilateral lower extremity angio with intervention ADITYA GARCIA MD Aug 16, 2016 10:25
--- NOTE | 2016-08-16 10:25 | PDOC ---
MODERATE SEDATION ASSESSMENT RISKS/ALTERNATIVES Risks/Alternatives Risks and alternatives of this type of sedation and procedure discussed with: RISK/ALTERNATIVES: Patient H & P ON CHART H & P H & P on chart and reviewed for co-morbid conditions and appropriate labs. H&P ON CHART: Yes STATUS PREG STATUS ASSESSED: Yes MEDS/ALLERGIES REVIEWED Meds/Allergies Reviewed Medications and Allergies including time and route of recently administered narcotics and sedatives. MEDS/ALLERGIES REVIEWED: Yes ASA RATING ASA RATING: II AIRWAY ASSESSMENT Airway Assessment Airway patency, oral function limitations, presence of caps, crowns, dentures, partials, and ability to extend neck assessed. AIRWAY ASSESSMENT: Yes MALLAMPATI SCORE MALLAMPATI SCORE: II PRE-SEDATION ASSESSMENT PRE-SEDATION ASSESSMENT: Yes ADITYA GARCIA MD Aug 16, 2016 10:25
--- NOTE | 2016-08-16 10:26 | PDOC ---
BRIEF OPERATIVE NOTE Pre-Op Diagnosis CAD and PAD Post-Op Diagnosis CAD, normal Peripheral arteries Procedure Performed Aortogram and bilateral lower extremity arteriograms Surgeon Jennifer Anesthesia Type: Conscious Sedation Findings Normal arteriogram Complications No immediate ADITYA GARCIA MD Aug 16, 2016 10:26
[2016-08-16 10:52] VITALS: BP 125/85
[2016-08-16 11:03] VITALS: BP 121/74
[2016-08-16 11:31] VITALS: BP 124/78
[2016-08-16 11:52] VITALS: BP 146/96
--- NOTE | 2016-08-17 09:46 | RAD ---
Procedure: Aortogram and bilateral lower extremity arteriograms, diagnostic Clinical Indication: 61-year-old male with 1 month of bilateral lower extremity rest pain and claudication. History of coronary artery disease Sedation: Conscious sedation was administered for 84 minutes. The patient was monitored by a qualified independent observer throughout the time of sedation. Please refer to the medical record for exact doses of medications utilized to achieve moderate sedation. Antibiotics: None Exposure: Kerma-Area Product: 659 Gycm2 Sterility: All elements of maximal sterile barrier technique including the use of a cap, mask, sterile gown, sterile gloves, large sterile sheet, appropriate hand hygiene, and 2% chlorhexidine for cutaneous antisepsis (or acceptable alternative antiseptic per current guidelines) were followed for this procedure. Consent: The procedure was explained in its entirety to the patient or the patients designated circulation sales representative by a member of the treatment team, including a discussion of the risks, benefits and commonly accepted alternatives to the procedure, as well as the expected consequences of no therapy whatsoever. Discussion of the risks included, but was not limited to, those that are most frequent and those that are rare but possibly severe or life-threatening, as well as the possibility of unforeseen complications. Technique and Findings: Following informed consent, the patient was prepped and draped in usual sterile fashion. 1% lidocaine was used to achieve local anesthesia over the right groin. A small dermatotomy was made. Ultrasound interrogation revealed patency of the right common femoral artery. Under ultrasound guidance, a 21-gauge micropuncture needle was used to gain access to this vessel. The needle was exchanged over wire for 5 Somali sheath. A flush catheter was advanced into the abdominal aorta and contrast aortography was performed. The aorta is normal in appearance. There are single bilateral renal arteries which are normal in appearance as well. Visceral arteries are not well seen. The catheter was then retracted to just above the aortic bifurcation and contrast angiography of the pelvis was performed in multiple obliquities. The common iliac, external iliac, internal iliac, and common femoral arteries bilaterally are normal in appearance as well. The flush catheter was then exchanged for an angled catheter which was advanced to the contralateral left common femoral artery and contrast angiography of the left leg was performed. The left superficial femoral, popliteal, tibioperoneal trunk, anterior tibial, posterior tibial, and peroneal arteries are all widely patent with minimal atherosclerotic disease. There is in-line flow to normal posterior tibial and dorsalis pedis arteries of the foot. The catheter was then removed and contrast angiography of the right leg was performed through the right groin sheath. The right superficial femoral artery, profunda femoral artery, popliteal artery, tibioperoneal trunk, posterior tibial and peroneal arteries are normal in appearance. The anterior tibial artery is not well seen distally and may be occluded. The peroneal artery appears to provide reconstituted flow to the dorsalis pedis artery the foot which is patent. Posterior tibial artery of the foot is patent as well as is in-line flow from the tibial peroneal trunk. The sheath was then exchanged for a minx device which was successfully utilized to obtain hemostasis. Complications: No immediate Impression: 1. Aortogram and bilateral lower extremity arteriography demonstrating normal aortoiliac arteries, normal left lower extremity arteries, and near-normal right lower extremity arteries save for occlusion of the distal right anterior tibial artery. There is reconstitution of the dorsalis pedis artery of the right foot via a healthy peroneal artery.
== END 2016-08-16 12:35 | disposition home or self-care (01) ==
LOC: INTRAD 07:07
PROVIDERS: ATTEND Family Medicine
DX: I70.292 Other atherosclerosis of native arteries of extremities, left leg (principal); I42.9 Cardiomyopathy, unspecified; I10 Essential (primary) hypertension; E78.00 Pure hypercholesterolemia, unspecified; E66.9 Obesity, unspecified; E11.9 Type 2 diabetes mellitus without complications; Z72.89 Other problems related to lifestyle
CPT/HCPCS: 36246; 36415; 75625; 75716; 76937; 80048; 85027; 85610; 85730; 94640; A4215; C1713; C1760; C1769; C1892; C1894; G0269; J2250; J3010; J7620; Q9967

== ENCOUNTER → 2017-02-14 | Outpatient (CLI) | payer MEDICARE ==
[~2017-02-14] MED LIST changes: -ASPI325T4 PO; +ASPI325T8 PO; +DOCU-109 PO; -DOCU-27 PO
== END | disposition home or self-care (01) ==
LOC: PMGWOUND 08:19
PROVIDERS: ATTEND Emergency Medicine Undersea and Hyperbaric Medicine
DX: I87.313 Chronic venous hypertension (idiopathic) with ulcer of bilateral lower extremity (principal); E11.622 Type 2 diabetes mellitus with other skin ulcer; L97.211 Non-pressure chronic ulcer of right calf limited to breakdown of skin; L97.221 Non-pressure chronic ulcer of left calf limited to breakdown of skin; I25.2 Old myocardial infarction; Z95.0 Presence of cardiac pacemaker; E66.9 Obesity, unspecified; Z68.41 Body mass index [BMI] 40.0-44.9, adult; E78.00 Pure hypercholesterolemia, unspecified; Z72.89 Other problems related to lifestyle; E78.5 Hyperlipidemia, unspecified; I48.91 Unspecified atrial fibrillation; Z87.891 Personal history of nicotine dependence; E11.22 Type 2 diabetes mellitus with diabetic chronic kidney disease; I13.0 Hypertensive heart and chronic kidney disease with heart failure and stage 1 through stage 4 chronic kidney disease, or unspecified chronic kidney disease; N18.3 Chronic kidney disease, stage 3 (moderate); I50.43 Acute on chronic combined systolic (congestive) and diastolic (congestive) heart failure
CPT/HCPCS: 97597; 97598

== ENCOUNTER → 2017-02-21 | Outpatient (CLI) | payer MEDICARE | END | disposition home or self-care (01) | LOC: PMGWOUND 13:29 | PROVIDERS: ATTEND Emergency Medicine Undersea and Hyperbaric Medicine | DX: I87.313 Chronic venous hypertension (idiopathic) with ulcer of bilateral lower extremity (principal); L97.211 Non-pressure chronic ulcer of right calf limited to breakdown of skin; L97.221 Non-pressure chronic ulcer of left calf limited to breakdown of skin; I12.9 Hypertensive chronic kidney disease with stage 1 through stage 4 chronic kidney disease, or unspecified chronic kidney disease; N18.3 Chronic kidney disease, stage 3 (moderate); I11.0 Hypertensive heart disease with heart failure; I50.43 Acute on chronic combined systolic (congestive) and diastolic (congestive) heart failure; I25.2 Old myocardial infarction; Z95.0 Presence of cardiac pacemaker; E78.5 Hyperlipidemia, unspecified; E66.9 Obesity, unspecified; Z68.41 Body mass index [BMI] 40.0-44.9, adult; Z72.89 Other problems related to lifestyle; I48.91 Unspecified atrial fibrillation | CPT/HCPCS: 29581; 99213 ==

== ENCOUNTER → 2017-02-28 | Outpatient (CLI) | payer MEDICARE | END | disposition home or self-care (01) | LOC: PMGWOUND 13:28 | PROVIDERS: ATTEND Emergency Medicine Undersea and Hyperbaric Medicine | DX: I87.313 Chronic venous hypertension (idiopathic) with ulcer of bilateral lower extremity (principal); E11.622 Type 2 diabetes mellitus with other skin ulcer; L97.211 Non-pressure chronic ulcer of right calf limited to breakdown of skin; L97.221 Non-pressure chronic ulcer of left calf limited to breakdown of skin; E78.5 Hyperlipidemia, unspecified; E11.22 Type 2 diabetes mellitus with diabetic chronic kidney disease; I13.0 Hypertensive heart and chronic kidney disease with heart failure and stage 1 through stage 4 chronic kidney disease, or unspecified chronic kidney disease; N18.3 Chronic kidney disease, stage 3 (moderate); I50.43 Acute on chronic combined systolic (congestive) and diastolic (congestive) heart failure; E66.9 Obesity, unspecified; I25.2 Old myocardial infarction; I48.91 Unspecified atrial fibrillation; Z72.89 Other problems related to lifestyle; Z95.0 Presence of cardiac pacemaker; Z87.891 Personal history of nicotine dependence; Z68.41 Body mass index [BMI] 40.0-44.9, adult | CPT/HCPCS: 99214 ==

== ENCOUNTER → 2017-03-07 | Outpatient (CLI) | payer MEDICARE | END | disposition home or self-care (01) | LOC: PMGWOUND 09:49 | PROVIDERS: ATTEND Emergency Medicine Undersea and Hyperbaric Medicine | DX: I87.313 Chronic venous hypertension (idiopathic) with ulcer of bilateral lower extremity (principal); L97.211 Non-pressure chronic ulcer of right calf limited to breakdown of skin; L97.221 Non-pressure chronic ulcer of left calf limited to breakdown of skin; E11.22 Type 2 diabetes mellitus with diabetic chronic kidney disease; I13.0 Hypertensive heart and chronic kidney disease with heart failure and stage 1 through stage 4 chronic kidney disease, or unspecified chronic kidney disease; N18.3 Chronic kidney disease, stage 3 (moderate); I50.43 Acute on chronic combined systolic (congestive) and diastolic (congestive) heart failure; E78.5 Hyperlipidemia, unspecified; E66.9 Obesity, unspecified; I48.91 Unspecified atrial fibrillation; I25.2 Old myocardial infarction; Z68.41 Body mass index [BMI] 40.0-44.9, adult; Z72.89 Other problems related to lifestyle; Z87.891 Personal history of nicotine dependence; Z95.0 Presence of cardiac pacemaker | CPT/HCPCS: 99213 ==

== ENCOUNTER → 2020-01-31 | Outpatient (CLI) | payer MEDICARE ==
[~2020-01-31] MED LIST changes: +CARV6.2511 PO; -CARV6.252 PO; -NITR0.4T SL; +NITR0.4T24 SL; +SIMV40TA18 PO; -SIMV40TA3 PO
--- NOTE | 2020-01-31 14:54 | KCIC ---
PROCEDURE: WRIST 3V RIGHT CLINICAL INDICATION / HISTORY: Reason: RIGHT WRIST/DISTAL FOREARM PAIN RADIAL SIDE S/P FALL APPROX 3 WEEKS AGO / Spl. Instructions: / History: . TECHNIQUE: Right wrist 3 views. AP, lateral, oblique views. COMPARISON: None FINDINGS: The radiocarpal and intracarpal relationships are maintained. There is no fracture or dislocation. The bone density is normal. Mild arterial calcifications in the radial artery are noted. The distal right radial diaphysis in the included field of view shows mild cortical thickening and increased lucency in the marrow space. IMPRESSION: 1. No acute osseous abnormality of the right wrist. 2. Distal right radial diaphyseal cortical expansion and thickening with lucency in the marrow is nonspecific. Healing response of old fracture, sessile osteochondroma, and reactive changes related to an osteoid osteoma or Omar's abscess are differential considerations. Consider MRI in further evaluation if clinically warranted. Electronically signed by: Gurinder Campuzano MD (01/31/2020 2:51 PM) [id number]
== END | disposition home or self-care (01) ==
LOC: KCIC 09:47
PROVIDERS: ATTEND Family Medicine
DX: M25.531 Pain in right wrist (principal); M25.512 Pain in left shoulder
CPT/HCPCS: 73110

== ENCOUNTER → 2020-02-27 | Outpatient (CLI) | payer MEDICARE ==
--- NOTE | 2020-02-27 17:46 | KCIC ---
STUDY: CT of the right upper extremity without contrast INDICATION: Right wrist injury. Pain. COMPARISON: 01/31/2020 radiographs. TECHNIQUE: Axial CT imaging of the right upper extremity/wrist performed without contrast. Coronal and sagittal reformats were obtained. One or more of the following individualized dose reduction techniques were utilized for this examination: 1. Automated exposure control 2. Adjustment of the mA and/or kV according to patient size 3. Use of iterative reconstruction technique. FINDINGS: Bones: No acute fracture is identified.. Scattered degenerative changes to include intercarpal, distal radioulnar joint and carpometacarpal but without severe joint space narrowing. A few carpal cysts such is seen within the scaphoid, trapezium and trapezoid. Within normal limits scapholunate interval. Slight dorsal tilt of the lunate though this is favored positional. No erosive change to suggest active inflammation. Soft tissues: Scattered soft tissue mineralization such as along the scapholunate ligament often seen with calcium pyrophosphate deposition. Vascular calcifications. Tendon integrity is not well assessed by CT but no disruption or dislocation is readily apparent. No evidence for a large joint effusion. IMPRESSION: 1. No acute fracture or traumatic malalignment by CT. 2. Scattered chronic findings, as above, to include soft tissue mineralization most often seen with calcium pyrophosphate deposition. Electronically signed by: JUAN RIUZ MD (02/27/2020 5:44 PM) [id number]
== END ==
LOC: KCIC CT 14:40
PROVIDERS: ATTEND Orthopaedic Surgery Sports Medicine
DX: M25.531 Pain in right wrist (principal)
CPT/HCPCS: 73200